=== PATIENT | male | born 1950 | race Caucasian/White ===

== ENCOUNTER → 2019-03-01 09:37 | Outpatient (CLI) | payer MEDICARE, OTHER | END | disposition home or self-care (01) | LOC: D.MRI 09:37 | PROVIDERS: ATTEND Orthopaedic Surgery | DX: M25.511 Pain in right shoulder (principal); M25.561 Pain in right knee ==

== ENCOUNTER 2019-07-21 05:15 | Day surgery (SDC) | payer MEDICARE, OTHER ==
[~2019-07-21] VITALS: Ht 172.7 cm; Wt 72.6 kg
[2019-07-21] MEDS ORDERED: CELEBREX200 MG PO (07:04)
[2019-07-21] MEDS ORDERED: FLOMAX0.4 MG PO (07:04)
[2019-07-21] MEDS ORDERED: PROSCAR5 MG PO (07:05)
[2019-07-21] MEDS ORDERED: PROPRANOLOL HCL80 MG PO (07:05)
[2019-07-21] MEDS ORDERED: LEVOTHYROXINE125 MCG PO (07:05)
[2019-07-21 07:11] VITALS: BP 130/68; Ht 172.7 cm; Wt 72.6 kg
== END 2019-07-21 12:19 | disposition home or self-care (01) ==
LOC: D.OPS 05:15 → D.PAN 07:30 → D.OPS 08:30
PROVIDERS: ATTEND Orthopaedic Surgery
DX: M25.511 Pain in right shoulder (principal); E07.9 Disorder of thyroid, unspecified
CPT/HCPCS: 29824; 0232T; 29823; 29826

== ENCOUNTER → 2020-04-27 14:38 | Outpatient (CLI) | payer MEDICARE, OTHER ==
[2019-07-21 07:11] VITALS: BMI 24.3
[~2020-04-27 14:38] MED LIST: CELEBREX200 MG PO; FLOMAX0.4 MG PO; LEVOTHYROXINE125 MCG PO; PROPRANOLOL HCL80 MG PO; PROSCAR5 MG PO
== END | disposition home or self-care (01) ==
LOC: D.MRI 14:38
PROVIDERS: ATTEND Orthopaedic Surgery
DX: S43.121A Dislocation of right acromioclavicular joint, 100%-200% displacement, initial encounter (principal)